=== PATIENT | female | born 1955 | race Caucasian/White ===

== ENCOUNTER 2017-07-03 18:14 | Inpatient (IN) | payer BC, OTHER ==
[2017-07-03] VITALS (7 sets, daily range): BP systolic 119–177; BP diastolic 56–104; PULSE 12–104; RESP 18–20; TEMP 98.6–98.7; O2SAT 94–97
[~2017-07-03] VITALS: Ht 160 cm; Wt 123.3 kg
[~2017-07-03 18:14] MED LIST: DARV PO; SULF-154 PO; Z.0.NO CURRENT MEDS
[2017-07-03] MEDS ORDERED: ALPR.25 PO (18:36)
[2017-07-03] MEDS ORDERED: ASPIRIN 81 MG CHEW TAB CHEW ONE (18:45)
--- NOTE | 2017-07-03 18:54 | PD ---
HPI Chief Complaint: Respiratory Symptoms Time Seen by Provider: 18:35 Travel History International Travel<30 days: No Contact w/Intl Traveler<30days: No Traveled to known affect area: No History of Present Illness HPI The patient is a 62-year-old female who presents to the emergency department for chest pain and shortness of breath. The patient states that she developed chest pain yesterday which was substernal, described as chest tightness, nonradiating, and associated with shortness of breath. The shortness of breath was exertional, alleviated at rest. The chest pressure dissipated on its own, however, the shortness of breath with exertion continued throughout today. The patient was seen at an urgent care yesterday where she had an EKG and a chest x-ray performed and was diagnosed with anxiety. The patient was sent home with a prescription for benzodiazepines. However, the patient's exertional shortness of breath continued today, once again states it' s worse with exertion of walking and alleviated at rest. The patient denies any known history of CAD, hypertension, hyperlipidemia, diabetes, or tobacco use. She denies any family history of early heart disease. The patient's symptoms are moderate, worse with exertion, and alleviated at rest. She also complains of cramping to the left lower extremity and pain located over the right popliteal fossa. She denies any history of pulmonary embolism or DVT. She denies any history of surgeries, travel, or hospitalizations in the last 3 months. PFSH Past Medical History Medical History: Denies Significant Hx ?: Not Past Surgical History Narrative Surgical section, cholecystectomy Section: Yes Social History Alcohol Use: Yes (VERY RARELY) Tobacco Use: No Substance Use: No Allergies-Medications (Allergen,Severity, Reaction): Coded Allergies: No Known Allergies (Verified , 07/03/17) Reported Meds & Prescriptions Reported Meds & Active Scripts Active Reported Xanax (Alprazolam) 0.25 Mg Tab 0.25 Mg PO BID PRN Review of Systems Except as stated in HPI: all other systems reviewed are Neg General / Constitutional: No: Fever Cardiovascular: Positive: Chest Pain or Discomfort, Dyspnea on exertion, No: Diaphoresis Respiratory: Positive: Shortness of Breath, No: Cough, Wheezing Gastrointestinal: No: Nausea, Vomiting, Abdominal Pain Musculoskeletal: Positive: Cramping, Pain, No: Limited ROM, Edema Physical Exam Narrative GENERAL: Awake, alert, pleasant [id number] female who appears her stated age and is in no acute respiratory distress. SKIN: Focused skin assessment warm/dry. HEAD: Atraumatic. Normocephalic. EYES: Pupils equal and round. No scleral icterus. No injection or drainage. ENT: No nasal bleeding or discharge. Mucous membranes pink and moist. NECK: Trachea midline. No JVD. CARDIOVASCULAR: Regular rate and rhythm. No murmur appreciated. Heart rate in the 90s. RESPIRATORY: No accessory muscle use. Clear to auscultation. Breath sounds equal bilaterally. GASTROINTESTINAL: Abdomen soft, obese, no rebound tenderness. MUSCULOSKELETAL: No obvious deformities. No clubbing. No cyanosis. No edema. Superficial varicosities noted bilaterally. NEUROLOGICAL: Awake and alert. No obvious cranial nerve deficits. Motor grossly within normal limits. Normal speech. PSYCHIATRIC: Appropriate mood and affect; insight and judgment normal. Data Data Last Documented VS Vital Signs Date Time Temp Pulse Resp B/P (MAP) Pulse Ox O2 Delivery O2 Flow Rate FiO2 07/03/17 20:26 87 20 136/70 (92) 97 07/03/17 19:11 Nasal Cannula 07/03/17 18:25 98.7 Orders Orders Complete Blood Count With Diff (07/03/17 18:42) Comprehensive Metabolic Panel (07/03/17 18:42) B-Type Natriuretic Peptide (07/03/17 18:42) Act Partial Throm Time (Ptt) (07/03/17 18:42) Prothrombin Time / Inr (Pt) (07/03/17 18:42) Magnesium (Mg) (07/03/17 18:42) Ckmb (Isoenzyme) Profile (07/03/17 18:42) Troponin I (07/03/17 18:42) Iv Access Insert/Monitor (07/03/17 18:42) Electrocardiogram (07/03/17 18:42) Ecg Monitoring (07/03/17 18:42) Oximetry (07/03/17 18:42) Oxygen Administration (07/03/17 18:42) Chest, Single Ap (07/03/17 18:42) Ct Pulmonary Angiogram (07/03/17 18:42) Sodium Chloride 0.9% Flush (Ns Flush) (07/03/17 18:45) Aspirin Chew (Aspirin Chew) (07/03/17 18:45) Us Leg Venous Doppler (07/03/17 ) Heparin Infusion MYCHAL.Q1H (07/03/17 20:27) Heparin Inj (Heparin Inj) (07/04/17 02:30) Heparin Inj (Heparin Inj) (07/04/17 02:30) Heparin-D5w 25,000 U/250 Ml (Heparin-D5w (07/03/17 20:30) Cbc No Diff, Includes Plts (07/06/17 06:00) Act Partial Throm Time (Ptt) (07/04/17 03:27) Occult Blood (Hemoccult) Stool (07/03/17 20:27) Iohexol 350 Inj (Omnipaque 350 Inj) (07/03/17 20:45) Admit Order (Ed Use Only) (07/03/17 20:48) Labs Laboratory Tests Test 07/03/17 18:55 White Blood Count 7.4 TH/MM3 Red Blood Count 4.63 MIL/MM3 Hemoglobin 12.3 GM/DL Hematocrit 38.8 % Mean Corpuscular Volume 83.8 FL Mean Corpuscular Hemoglobin 26.5 PG Mean Corpuscular Hemoglobin Concent 31.6 % Red Cell Distribution Width 15.7 % Platelet Count 116 TH/MM3 Mean Platelet Volume 10.9 FL Neutrophils (%) (Auto) 66.6 % Lymphocytes (%) (Auto) 18.6 % Monocytes (%) (Auto) 7.8 % Eosinophils (%) (Auto) 3.4 % Basophils (%) (Auto) 3.6 % Neutrophils # (Auto) 4.8 TH/MM3 Lymphocytes # (Auto) 1.4 TH/MM3 Monocytes # (Auto) 0.6 TH/MM3 Eosinophils # (Auto) 0.3 TH/MM3 Basophils # (Auto) 0.3 TH/MM3 CBC Comment DIFF FINAL Differential Comment Prothrombin Time 11.3 SEC Prothromb Time International Ratio 1.0 RATIO Activated Partial Thromboplast Time 26.5 SEC Blood Urea Nitrogen 11 MG/DL Creatinine 0.84 MG/DL Random Glucose 113 MG/DL Total Protein 7.4 GM/DL Albumin 3.4 GM/DL Calcium Level 9.1 MG/DL Magnesium Level 2.3 MG/DL Alkaline Phosphatase 89 U/L Aspartate Amino Transf (AST/SGOT) 17 U/L Alanine Aminotransferase (ALT/SGPT) 28 U/L Total Bilirubin 0.7 MG/DL Sodium Level 139 MEQ/L Potassium Level 3.8 MEQ/L Chloride Level 106 MEQ/L Carbon Dioxide Level 24.3 MEQ/L Anion Gap 9 MEQ/L Estimat Glomerular Filtration Rate 69 ML/MIN Total Creatine Kinase 72 U/L Troponin I 0.23 NG/ML B-Type Natriuretic Peptide 155 PG/ML MDM Medical Decision Making Medical Screen Exam Complete: Yes Emergency Medical Condition: Yes Medical Record Reviewed: Yes Interpretation(s) EKG reveals normal sinus rhythm with a rate in 90. Q wave noted in lead 3 with inverted T-wave. Low QRS voltage precordial leads. Last Impressions Chest X-Ray 07/03/[id number] Signed Impressions: Service Date/Time: Monday, July 03, 2017 18:57 - CONCLUSION: No acute cardiopulmonary disease. Henry Hong MD CT Angiography [id number]/03/[id number] Signed Impressions: Service Date/Time: Monday, July 03, 2017 20:31 - CONCLUSION: Extensive PE. Henry Hong MD Lower Extremity Ultrasound 07/03/17 0000 Signed Impressions: Service Date/Time: Monday, July 03, 2017 20:02 - CONCLUSION: Extensive DVT. Henry Hong MD Laboratory Tests Test 07/03/17 18:55 White Blood Count 7.4 TH/MM3 Red Blood Count 4.63 MIL/MM3 Hemoglobin 12.3 GM/DL Hematocrit 38.8 % Mean Corpuscular Volume 83.8 FL Mean Corpuscular Hemoglobin 26.5 PG Mean Corpuscular Hemoglobin Concent 31.6 % Red Cell Distribution Width 15.7 % Platelet Count 116 TH/MM3 Mean Platelet Volume 10.9 FL Neutrophils (%) (Auto) 66.6 % Lymphocytes (%) (Auto) 18.6 % Monocytes (%) (Auto) 7.8 % Eosinophils (%) (Auto) 3.4 % Basophils (%) (Auto) 3.6 % Neutrophils # (Auto) 4.8 TH/MM3 Lymphocytes # (Auto) 1.4 TH/MM3 Monocytes # (Auto) 0.6 TH/MM3 Eosinophils # (Auto) 0.3 TH/MM3 Basophils # (Auto) 0.3 TH/MM3 CBC Comment DIFF FINAL Differential Comment Prothrombin Time 11.3 SEC Prothromb Time International Ratio 1.0 RATIO Activated Partial Thromboplast Time 26.5 SEC Blood Urea Nitrogen 11 MG/DL Creatinine 0.84 MG/DL Random Glucose 113 MG/DL Total Protein 7.4 GM/DL Albumin 3.4 GM/DL Calcium Level 9.1 MG/DL Magnesium Level 2.3 MG/DL Alkaline Phosphatase 89 U/L Aspartate Amino Transf (AST/SGOT) 17 U/L Alanine Aminotransferase (ALT/SGPT) 28 U/L Total Bilirubin 0.7 MG/DL Sodium Level 139 MEQ/L Potassium Level 3.8 MEQ/L Chloride Level 106 MEQ/L Carbon Dioxide Level 24.3 MEQ/L Anion Gap 9 MEQ/L Estimat Glomerular Filtration Rate 69 ML/MIN Total Creatine Kinase 72 U/L Troponin I 0.23 NG/ML B-Type Natriuretic Peptide 155 PG/ML Differential Diagnosis Differential diagnosis includes cardiomyopathy, pericardial effusion, acute coronary syndrome, pulmonary embolism, pleural effusion, DVT, pulmonary edema, congestive heart failure, deconditioning. Narrative Course IV was established, labs are drawn and sent, and the patient was placed on cardiac telemetry monitoring and continuous pulse oximetry monitoring. EKG was ordered and interpreted. Chest x-ray was obtained. CT pulmonary angiogram was ordered an ultrasound of the right lower extremity was ordered. The patient was administered aspirin 162 mg orally. The patient's ultrasound was positive for DVT, CT pulmonary angiogram was positive for pulmonary embolism. The patient was placed on a heparin drip. The patient's chest x-ray was unremarkable. The patient's troponin was positive at 0.23, most likely secondary strain from pulmonary embolism. The patient has [facility], therefore, the on-call [facility] physician was paged. I discussed the patient with Dr. Yi who agrees with admission. Critical Care Narrative Aggregate critical care time was 35 minutes. Time to perform other separately billable procedures was not included in the critical care time. My time did not include minutes spent treating any other patients simultaneously or on activities that did not directly contribute to the patient's treatment. The services I provided to this patient were to treat and/or prevent clinically significant deterioration that could result in: Anoxia, hypoxia, arrhythmia, cardiomyopathy, . I provided critical care services requiring my management, as noted below: Chart data review, documentation time, medication orders and management, vital sign assessments/reviewing monitor data, ordering and reviewing lab tests, ordering and interpreting/reviewing x-rays and diagnostic studies, care of the patient and discussion of the patient with the admitting physicians. Physician Communication Physician Communication I discussed the patient with Dr. Yi who agrees with admission. Diagnosis Primary Impression: Pulmonary embolism Qualified Codes: I26.99 - Other pulmonary embolism without acute cor pulmonale Additional Impressions: DVT (deep venous thrombosis) Qualified Codes: I82.401 - Acute embolism and thrombosis of unspecified deep veins of right lower extremity Dyspnea on exertion Admitting Information Admitting Physician Requests: Admit Condition: Stable Shiv Dhaliwal MD Jul 03, 2017 18:54
[2017-07-03] MEDS: SODIUM CHLORIDE 0.9% FLUSH 10 ML FLUSH IVF PRN (18:55)
[2017-07-03 19:00] LABS: AUTOMATED NEUTROPHIL # 4.8 TH/MM3 (1.8-7.7); BASOPHIL # 0.3 TH/MM3 (0-0.2); BASOPHIL % 3.6 % (0.0-2.0); EOSINOPHIL # 0.3 TH/MM3 (0-0.4); EOSINOPHIL % 3.4 % (0.0-4.0); HEMATOCRIT 38.8 % (35.0-46.0); HEMO FLAGS DIFF FINAL; LYMPH % 18.6 % (9.0-44.0); LYMPHOCYTE # 1.4 TH/MM3 (1.0-4.8); MEAN CELL VOLUME 83.8 FL (80.0-100.0); MEAN CORPUSCULAR HEMOGLOBIN 26.5 PG (27.0-34.0); MEAN CORPUSCULAR HGB CONC 31.6 % (32.0-36.0); MONO % 7.8 % (0.0-8.0); NEUT % 66.6 % (16.0-70.0); PLATELET COUNT 116 TH/MM3 (150-450); RED BLOOD COUNT 4.63 MIL/MM3 (4.00-5.30); RED CELL DISTRIBUTION WIDTH 15.7 % (11.6-17.2); WHITE BLOOD COUNT 7.4 TH/MM3 (4.0-11.0)
[2017-07-03 19:10] LABS: CHLORIDE 106 MEQ/L (98-107); POTASSIUM 3.8 MEQ/L (3.5-5.1); SODIUM (NA) 139 MEQ/L (136-145)
[2017-07-03 19:14] LABS: ANION GAP 9 MEQ/L (5-15); BICARBONATE 24.3 MEQ/L (21.0-32.0); BLOOD UREA NITROGEN 11 MG/DL (7-18); MAGNESIUM 2.3 MG/DL (1.5-2.5)
[2017-07-03 19:15] LABS: APTT (PATIENT) 26.5 SEC (24.3-30.1); PROTHROMBIN TIME - PATIENT 11.3 SEC (9.8-11.6)
[2017-07-03 19:17] LABS: ALT (GPT) 28 U/L (10-53); AST (GOT) 17 U/L (15-37); GLOMERULAR FILTRATION RATE 69 ML/MIN (>89)
[2017-07-03 19:18] LABS: TOTAL BILIRUBIN ADULT 0.7 MG/DL (0.2-1.0)
[2017-07-03 19:20] LABS: ALKALINE PHOSPHATASE 89 U/L (45-117)
--- NOTE | 2017-07-03 19:24 | RADRPT ---
EXAM DATE/TIME: 07/03/2017 18:57 [facility] COMPARISON: No previous studies available for comparison. INDICATIONS : Short of breath for several days. MEDICAL HISTORY : None. SURGICAL HISTORY : None. ENCOUNTER: Initial ACUITY: 3 days PAIN SCORE: 0/10 LOCATION: Bilateral chest FINDINGS: The lungs are clear without infiltrate, nodule, or mass. There is no appreciable pleural effusion fo r technique. Heart and mediastinum are unremarkable. CONCLUSION: No acute cardiopulmonary disease. Henry Hong MD on July 03, 2017 at 19:23 Board Certified Radiologist. This report was verified electronically.
[2017-07-03 19:27] LABS: CREATINE KINASE 72 U/L (26-192)
[2017-07-03] MEDS ORDERED: IOHEXOL 350 MG/ML 10 ML VIAL (for RAD DIAG) IVCONTRAST ONE (20:45)
--- NOTE | 2017-07-03 20:55 | RADRPT ---
EXAM DATE/TIME: 07/03/2017 20:31 [facility] COMPARISON: No previous studies available for comparison. INDICATIONS : Short of breath. IV CONTRAST: 75 cc Omnipaque 350 (iohexol) IV RADIATION DOSE: 21.80 CTDIvol (mGy) MEDICAL HISTORY : None SURGICAL HISTORY : section. ENCOUNTER: Initial ACUITY: 1 day PAIN SCALE: 0/10 LOCATION: chest TECHNIQUE: Volumetric scanning of the chest was performed using a pulmonary embolism protocol MIP images were re constructed. Using automated exposure control and adjustment of the mA and/or kV according to patien t size, radiation dose was kept as low as reasonably achievable to obtain optimal diagnostic quality images. DICOM format image data is available electronically for review and comparison. Follow-up recommendations for detected pulmonary nodules are based at a minimum on nodule size and pa tient risk factors according to Fleischner Society Guidelines. FINDINGS: There is extensivepulmonary embolus right pulmonary artery extending into middle lobe and right lower lobe with questionable slight involvement of the right upper lobe and left lower lobe. Lungs ar e clear. CONCLUSION: Extensive PE. Henry Hong MD on July 03, 2017 at 20:51 Board Certified Radiologist. This report was verified electronically.
--- NOTE | 2017-07-03 20:56 | RADRPT ---
EXAM DATE/TIME: 07/03/2017 20:02 [facility] COMPARISON: No previous studies available for comparison. INDICATIONS : Right leg pain. MEDICAL HISTORY : Right leg pain. Shortness of breath. SURGICAL HISTORY : section. Cholecystectomy. ENCOUNTER: Initial ACUITY: 2 day PAIN SCORE: 3/10 LOCATION: Right leg. TECHNIQUE: Venous ultrasound of the leg was performed from the inguinal ligament to the proximal calf. Real-anthony e, color Doppler and spectral tracing, compression and augmentation techniques were used. FINDINGS: There is extensive deep venous thrombosis which extends from superficial femoral vein all the way renee n to the tibial vein and below the knee vessels . CONCLUSION: Extensive DVT. Henry Hong MD on July 03, 2017 at 20:53 Board Certified Radiologist. This report was verified electronically.
[2017-07-03] MEDS: HEPARIN-D5W 25,000 U/250 ML 250 ML IV SCH (21:00)
[2017-07-03] MEDS ORDERED: TEMAZEPAM 15 MG CAP PO PRN (22:00)
[2017-07-03] MEDS ORDERED: ACETAMINOPHEN 325 MG TAB PO PRN (22:00)
[2017-07-03] MEDS ORDERED: ONDANSETRON HCL 4 MG/2 ML VIAL IVP PRN (22:00)
[2017-07-03] MEDS ORDERED: NALOXONE HCL 0.4 MG/ML AMP IV PUSH PRN (22:00)
[2017-07-03] MEDS ORDERED: HEPARIN SODIUM - IV 10,000 UNITS/10 ML VIAL IV ONE (22:15)
[2017-07-04] VITALS (10 sets, daily range): BP systolic 109–140; BP diastolic 62–78; PULSE 72–104; RESP 12–28; TEMP 98.4–99; O2SAT 93–98
[2017-07-04] MEDS ORDERED: HEPARIN SODIUM - IV 10,000 UNITS/10 ML VIAL IV PRN (02:30)
[2017-07-04] MEDS ORDERED: PERMETHRIN 1% LOTION 60 ML BTL TOPICAL SCH (02:30)
[2017-07-04] MEDS ORDERED: HEPARIN - 10,000 UNITS/ML IV ADDITIVE IV PRN (02:30)
[2017-07-04 03:47] LABS: APTT (PATIENT) 80.1 SEC (24.3-30.1)
[2017-07-04] MEDS: ACETAMINOPHEN/HYDROcodone 325 MG/5 MG TAB PO PRN ×2 (04:31→21:18)
[2017-07-04] MEDS ORDERED: PNEUMOCOCCAL POLYVALENT INJ 25 MCG/0.5 ML SYR IM ONE (09:00)
[2017-07-04] MEDS ORDERED: INFLUENZA VIRUS VACCINE (QUADRIVALENT) 0.5 ML SYR IM ONE (09:00)
[2017-07-04 09:13] LABS: CHLORIDE 107 MEQ/L (98-107); POTASSIUM 3.9 MEQ/L (3.5-5.1); SODIUM (NA) 142 MEQ/L (136-145)
[2017-07-04 09:14] LABS: BASOPHIL % 0.7 % (0.0-2.0); EOSINOPHIL # 0.4 TH/MM3 (0-0.4); EOSINOPHIL % 5.8 % (0.0-4.0); HEMATOCRIT 34.4 % (35.0-46.0); LYMPH % 21.8 % (9.0-44.0); LYMPHOCYTE # 1.3 TH/MM3 (1.0-4.8); MEAN CELL VOLUME 83.8 FL (80.0-100.0); MEAN CORPUSCULAR HEMOGLOBIN 27.8 PG (27.0-34.0); MEAN CORPUSCULAR HGB CONC 33.1 % (32.0-36.0); MONO % 7.5 % (0.0-8.0); NEUT % 64.2 % (16.0-70.0); PLATELET COUNT 93 TH/MM3 (150-450); RED CELL DISTRIBUTION WIDTH 15.4 % (11.6-17.2); WHITE BLOOD COUNT 6.2 TH/MM3 (4.0-11.0)
[2017-07-04 09:18] LABS: ANION GAP 8 MEQ/L (5-15); BICARBONATE 27.2 MEQ/L (21.0-32.0); BLOOD UREA NITROGEN 10 MG/DL (7-18)
[2017-07-04 09:19] LABS: APTT (PATIENT) 61.6 SEC (24.3-30.1); HEMO FLAGS AUTO DIFF
[2017-07-04 09:21] LABS: ALT (GPT) 28 U/L (10-53); AST (GOT) 19 U/L (15-37); GLOMERULAR FILTRATION RATE 79 ML/MIN (>89)
[2017-07-04 09:22] LABS: TOTAL BILIRUBIN ADULT 0.8 MG/DL (0.2-1.0)
[2017-07-04 09:24] LABS: ALKALINE PHOSPHATASE 85 U/L (45-117)
[2017-07-04 09:31] LABS: CREATINE KINASE 46 U/L (26-192)
[2017-07-04 09:41] LABS: PLATELET ESTIMATE SMEAR LOW (NORMAL); PLATELET MORPHOLOGY NORMAL (NORMAL)
[2017-07-04 09:42] LABS: SCAN/DIFF AUTO DIFF CONFIRMED
[2017-07-04] MEDS: HEPARIN-D5W 25,000 U/250 ML 250 ML IV SCH (10:50)
--- NOTE | 2017-07-04 14:04 | EKG ---
Date Performed: 07/03/2017 Time Performed: 18:46:14 PTAGE: 62 years EKG: Sinus rhythm LOW QRS VOLTAGE IN PRECORDIAL LEADS BORDERLINE ECG NO PREVIOUS TRACING DOCTOR: Amos Mishra Interpretating Date/Time 07/04/2017 13:57:12
[2017-07-04 14:58] LABS: APTT (PATIENT) 53.9 SEC (24.3-30.1)
[2017-07-04] MEDS: WARFARIN SOD 7.5 MG TAB PO SCH (18:21)
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
[2017-07-05] VITALS (16 sets, daily range): BP systolic 93–135; BP diastolic 47–71; PULSE 62–91; RESP 11–49; TEMP 97.7–98.9; O2SAT 93–98
[2017-07-05] MEDS: ACETAMINOPHEN/HYDROcodone 325 MG/5 MG TAB PO PRN ×2 (05:21→20:18)
[2017-07-05 05:50] LABS: AUTOMATED NEUTROPHIL # 3.7 TH/MM3 (1.8-7.7); BASOPHIL % 0.5 % (0.0-2.0); EOSINOPHIL # 0.3 TH/MM3 (0-0.4); EOSINOPHIL % 5.3 % (0.0-4.0); HEMATOCRIT 33.2 % (35.0-46.0); HEMO FLAGS DIFF FINAL; LYMPH % 21.3 % (9.0-44.0); LYMPHOCYTE # 1.2 TH/MM3 (1.0-4.8); MEAN CELL VOLUME 83.3 FL (80.0-100.0); MEAN CORPUSCULAR HEMOGLOBIN 26.5 PG (27.0-34.0); MEAN CORPUSCULAR HGB CONC 31.8 % (32.0-36.0); MONO % 8.9 % (0.0-8.0); PLATELET COUNT 108 TH/MM3 (150-450); RED BLOOD COUNT 3.99 MIL/MM3 (4.00-5.30); RED CELL DISTRIBUTION WIDTH 15.2 % (11.6-17.2); WHITE BLOOD COUNT 5.7 TH/MM3 (4.0-11.0)
[2017-07-05 05:59] LABS: CHLORIDE 108 MEQ/L (98-107); POTASSIUM 3.7 MEQ/L (3.5-5.1); SODIUM (NA) 143 MEQ/L (136-145)
[2017-07-05 06:02] LABS: BLOOD, URINE LARGE (NEG); GLUCOSE,URINE NEG (NEG); KETONE, URINE NEG (NEG); NITRITE,URINE POS (NEG); PH, URINE 5.5 (5.0-8.5)
[2017-07-05 06:03] LABS: BLOOD UREA NITROGEN 11 MG/DL (7-18)
[2017-07-05 06:04] LABS: ANION GAP 7 MEQ/L (5-15); APTT (PATIENT) 56.4 SEC (24.3-30.1); BICARBONATE 28.2 MEQ/L (21.0-32.0)
[2017-07-05 06:06] LABS: ALT (GPT) 25 U/L (10-53); AST (GOT) 16 U/L (15-37); GLOMERULAR FILTRATION RATE 66 ML/MIN (>89)
[2017-07-05 06:08] LABS: TOTAL BILIRUBIN ADULT 0.9 MG/DL (0.2-1.0)
[2017-07-05 06:09] LABS: ALKALINE PHOSPHATASE 90 U/L (45-117)
[2017-07-05 06:19] LABS: METHOD OF COLLECTION VOIDED; URINE COLOR YELLOW (YELLW/STRAW)
[2017-07-05 06:22] LABS: BACTERIA, URINE MANY /hpf; COMMENT (UR) CULTURE INDICATED; CULTURE IF INDICATED CULTURE INDICATED
--- NOTE | 2017-07-05 09:28 | RADRPT ---
EXAM DATE/TIME: 07/05/2017 08:36 [facility] COMPARISON: No previous studies available for comparison. INDICATIONS : Bleeding. MEDICAL HISTORY : DVT. PE SURGICAL HISTORY : section. Cholecystectomy. ENCOUNTER: Initial ACUITY: > 1 year PAIN SCORE: 0/10 LOCATION: Bilateral pelvis MEASUREMENTS: UTERUS: 10.7 x 8.5 x 7.1 cm ENDOMETRIAL STRIPE: >20 mm RIGHT OVARY: Non visualized LEFT OVARY: Non visualized FINDINGS: UTERUS: The myometrium is homogeneous. There does appear to be some thickening of the endometrial lining at 3 .3 cm. No definite fluid is seen in the endometrial cavity. There appears to be a hypoechoic mass in the posterior fundus measuring 2.8 cm suggestive of fibroid. A few tiny nabothian cysts are seen in t he cervix. RIGHT OVARY: Not visualized. No adnexal masses LEFT OVARY: Not visualized. No adnexal masses. MISCELLANEOUS: No free fluid. CONCLUSION: 1. There is some thickening involving the endometrial lining at 3.3 cm. This is abnormal for this pat ient's age group. In a patient with postmenopausal bleeding, further evaluation is recommended. 2. There appears to be a hypoechoic mass in the posterior fundus measuring 2.8 cm suggestive of a fib roid. 3. The ovaries were not visualized. Irwin Connelly MD on July 05, 2017 at 9:23 Board Certified Radiologist. This report was verified electronically.
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
--- NOTE | 2017-07-05 12:45 | ECHRPT ---
Indication: Pericardial effusion (noninflammatory) CONCLUSIONS Normal left ventricular size and wall thickness. The left ventricular systolic function is normal wi th an estimated ejection fraction in the range of 60-65%. Left ventricular diastolic function parameters a re normal. There is a small pericardial effusion present. BP: 95 / 71 HR: 72 Rhythm: Sinus Technical Quality:Good FINDINGS LEFT VENTRICLE Normal left ventricular size and wall thickness. The left ventricular systolic function is normal wi th an estimated ejection fraction in the range of 60-65%. Left ventricular diastolic function parameters a re normal. RIGHT VENTRICLE Normal right ventricular size and systolic function. LEFT ATRIUM The left atrial size is normal. RIGHT ATRIUM The right atrial size is normal. ATRIAL SEPTUM Normal atrial septal thickness without atrial level shunting by limited color doppler interrogation. AORTA The aortic root and proximal ascending aorta are normal in size on limited imaging. MITRAL VALVE Structurally normal mitral valve. No mitral valve stenosis or regurgitation. AORTIC VALVE Trileaflet aortic valve. No aortic valve stenosis or regurgitation. TRICUSPID VALVE Structurally normal tricuspid valve. No tricuspid valve stenosis or regurgitation. PULMONARY VALVE The pulmonary valve is not well visualized. VESSELS The inferior vena cava is normal in size. PERICARDIUM There is a small pericardial effusion present. Amos Mishra MD, FACC (Electronically Signed) Final Date:05 July 2017 12:44
[2017-07-05] MEDS: WARFARIN SOD 7.5 MG TAB PO SCH (16:00)
--- NOTE | 2017-07-05 19:10 | HHI.PR ---
Subjective Remarks states able to walk a little better with out as much discomfort, not as sob had not mentioned vaginal spotting yesterday at initial interview, states has had it for several yrs, 5-6, attributes it to stress as feels that is when it comes on, last menses 3 yrs ago. states spotting has not been increased with anticoagulation neither in intensity nor quantity. Researched cost of oral agents after discussion with Dr Valencia. States she cannot afford the cost of any of them. Would rather take coumadin and have regular blood work. Objective Vitals Vital Signs Date Time Temp Pulse Resp B/P (MAP) Pulse Ox O2 Delivery O2 Flow Rate FiO2 07/05/17 16:01 98.0 72 20 127/65 (85) 96 07/05/17 16:00 74 17 97 07/05/17 15:00 76 07/05/17 12:01 64 12 99/54 (69) 95 07/05/17 12:00 66 11 95 07/05/17 11:00 68 11 94 07/05/17 10:00 88 38 07/05/17 09:00 80 49 07/05/17 08:01 64 11 95/47 (63) 96 07/05/17 08:00 93 Nasal Cannula 2.00 07/05/17 08:00 62 12 96 07/05/17 07:53 72 07/05/17 06:20 18 07/05/17 04:58 97.7 66 20 95/71 (79) 98 07/05/17 00:00 98.8 72 14 93/48 (63) 94 07/04/17 23:07 84 07/04/17 20:00 98.9 76 20 109/72 (84) 96 07/04/17 19:30 93 Nasal Cannula 2.00 07/05/17 07/05/17 07/06/17 15:00 23:00 07:00 Intake Total 600 ml Output Total 500 ml Balance 100 ml Intake Oral 600 ml Output Urine Total 500 ml # Bowel Movements 0 Result Diagram: 07/05/17 0445 07/05/17 0445 Imaging Last Impressions Pelvis Ultrasound 07/05/17 0000 Signed Impressions: Service Date/Time: June 08:36 - CONCLUSION: 1. There is some thickening involving the endometrial lining at 3.3 cm. This is abnormal for this patient's age group. In a patient with postmenopausal bleeding, further evaluation is recommended. 2. There appears to be a hypoechoic mass in the posterior fundus measuring 2.8 cm suggestive of a fibroid. 3. The ovaries were not visualized. Irwin Connelly MD Chest X-Ray 07/03/171841 Signed Impressions: Service Date/Time: Monday, July 03, 2017 18:57 - CONCLUSION: No acute cardiopulmonary disease. Henry Hong MD CT Angiography 07/03/171841 Signed Impressions: Service Date/Time: Monday, July 03, 2017 20:31 - CONCLUSION: Extensive PE. Henry Hong MD Lower Extremity Ultrasound 07/03/17 0000 Signed Impressions: Service Date/Time: Monday, July 03, 2017 20:02 - CONCLUSION: Extensive DVT. Henry Hong MD Objective Remarks Lying in bed wearing O2 nasal cannula NAD CTA no wheezing rrr not tachycardic Globose +BS NO c/c/e Tender below left knee, varicosities both lower extremities A/P Problem List: (1) Pulmonary embolism ICD Codes: I26.99 - Other pulmonary embolism without acute cor pulmonale Status: Acute Plan: continue on anticoagulation she is unable to afford the cost of the newer oral agents and has been very anxious about being on lovenox while we bridge her she has agreed to try to the lovenox tonight to see if she is able to do it meanwhile will continue with coumadin (2) DVT (deep venous thrombosis) ICD Codes: I82.409 - Acute embolism and thrombosis of unspecified deep veins of unspecified lower extremity Status: Acute Plan: continue anticoagulation as above (3) Vaginal bleeding, abnormal ICD Codes: N93.9 - Abnormal uterine and vaginal bleeding, unspecified Status: Chronic Plan: she has had vaginal bleeding /spotting ongoing for several years according to her her vaginal ultrasound was abnormal, she needs to be seen by port patrol officer so far she has not bled more while anticoagulated and needs to continue anticoagulation if possible Problem Qualifiers (1) Pulmonary embolism: Qualified Codes: I26.99 - Other pulmonary embolism without acute cor pulmonale (2) DVT (deep venous thrombosis): Qualified Codes: I82.401 - Acute embolism and thrombosis of unspecified deep veins of right lower extremity Alicia Wilcox MD Jul 05, 2017 19:10
[2017-07-05] MEDS: ENOXAPARIN SODIUM 120 MG/0.8 ML SYRINGE SQ SCH (21:15)
[2017-07-05] MEDS: SODIUM CHLORIDE 0.9% FLUSH 10 ML FLUSH IVF PRN (21:16)
[2017-07-05] MEDS ORDERED: DO NOT ADM ANY ANTICOAGULANT DRUGS OTHER PRN (21:45)
[2017-07-06] VITALS (17 sets, daily range): BP systolic 119–141; BP diastolic 53–77; PULSE 58–112; RESP 13–35; TEMP 97.7–100.8; O2SAT 4–99
[2017-07-06] MEDS: ACETAMINOPHEN/HYDROcodone 325 MG/5 MG TAB PO PRN ×2 (04:15→16:53)
[2017-07-06 04:17] LABS: AUTOMATED NEUTROPHIL # 2.9 TH/MM3 (1.8-7.7); BASOPHIL # 0.1 TH/MM3 (0-0.2); BASOPHIL % 1.1 % (0.0-2.0); EOSINOPHIL # 0.3 TH/MM3 (0-0.4); EOSINOPHIL % 6.6 % (0.0-4.0); HEMATOCRIT 35.6 % (35.0-46.0); HEMO FLAGS DIFF FINAL; LYMPH % 22.5 % (9.0-44.0); MEAN CELL VOLUME 84.8 FL (80.0-100.0); MEAN CORPUSCULAR HGB CONC 31.9 % (32.0-36.0); MONO % 7.4 % (0.0-8.0); NEUT % 62.4 % (16.0-70.0); PLATELET COUNT 113 TH/MM3 (150-450); RED BLOOD COUNT 4.21 MIL/MM3 (4.00-5.30); RED CELL DISTRIBUTION WIDTH 15.5 % (11.6-17.2); WHITE BLOOD COUNT 4.6 TH/MM3 (4.0-11.0)
[2017-07-06 04:24] LABS: CHLORIDE 106 MEQ/L (98-107); POTASSIUM 4.1 MEQ/L (3.5-5.1); SODIUM (NA) 141 MEQ/L (136-145)
[2017-07-06 04:28] LABS: ANION GAP 6 MEQ/L (5-15); BLOOD UREA NITROGEN 11 MG/DL (7-18)
[2017-07-06 04:31] LABS: ALT (GPT) 25 U/L (10-53); AST (GOT) 13 U/L (15-37); GLOMERULAR FILTRATION RATE 70 ML/MIN (>89)
[2017-07-06 04:33] LABS: TOTAL BILIRUBIN ADULT 0.6 MG/DL (0.2-1.0)
[2017-07-06 04:34] LABS: ALKALINE PHOSPHATASE 99 U/L (45-117)
[2017-07-06 04:50] LABS: INTERNATIONAL NORMALIZED RATIO 1.2 RATIO; PROTHROMBIN TIME - PATIENT 13.4 SEC (9.8-11.6)
[2017-07-06] MEDS: ENOXAPARIN SODIUM 120 MG/0.8 ML SYRINGE SQ SCH ×2 (09:27→20:05)
--- NOTE | 2017-07-06 14:07 | PD.CONS ---
HPI Chief Complaint PMB x 3 years now on anticoagulation for PE and DVT sono with endometrial stripe of 3 cm pap smear nl by report no significant bleeding now or increase since Coumadin started Date Seen: Jul 06, 2017 Time Seen: 13:58 Travel History International Travel<30 Days: No Contact w/Intl Traveler<30Days: No Known Affected Area: No History Obstetric History Obstetric History C/S X 1 BEEN HAVING PMB SPOTTING FOR SEVERAL YEARS Family History Family History: Negative Social History Alcohol Use: Yes Tobacco Use: Yes Substance Abuse: Yes Allergies-Medications (Allergen,Severity, Reaction): Coded Allergies: No Known Allergies (Verified , 07/03/17) Home Meds Reported Medications Alprazolam (Xanax) 0.25 Mg Tab, 0.25 MG PO BID Y for ANXIETY, TAB 0 Refills 07/03/17 Review of Systems Genitourinary: Vaginal Bleeding, No: Urgency, Pelvic Pain Physical Exam Vital Signs Date Time Temp Pulse Resp B/P (MAP) Pulse Ox O2 Delivery O2 Flow Rate FiO2 07/06/17 13:34 98.3 68 14 139/53 (81) 97 07/06/17 10:00 66 07/06/17 09:30 97.7 72 35 121/77 (92) 94 07/06/17 09:00 60 07/06/17 08:00 58 07/06/17 07:42 97 Nasal Cannula 2.00 07/06/17 07:00 58 07/06/17 04:00 100.8 111 13 141/64 (89) 97 07/06/17 00:00 112 16 4 07/05/17 23:00 91 07/05/17 21:18 25 07/05/17 20:00 98.9 90 22 135/65 (88) 96 07/05/17 19:52 95 Nasal Cannula 2.00 07/05/17 16:01 98.0 72 20 127/65 (85) 96 07/05/17 16:00 74 17 97 07/05/17 15:00 76 Narrative GENERAL: Well-nourished, well-developed patient. Data Data Vital Signs Reviewed: Yes Orders Orders Warfarin (Coumadin) Pt Teach (Coumadin B (07/05/17 16:16) Prothrombin Time / Inr (Pt) (07/06/17 06:00) Occult Blood (Hemoccult) Stool (07/05/17 19:15) Specimen To Be Collected PRN (07/05/17 19:15) Enoxaparin Inj (Lovenox Inj) (07/05/17 21:00) Consult Gynecology (07/05/17 ) Complete Blood Count With Diff (07/06/17 06:00) Comprehensive Metabolic Panel (07/06/17 06:00) [facility] (07/05/17 21:45) Warfarin (Coumadin) Pt Teach (Coumadin B (07/05/17 16:00) Med Onc Bar Trans-No Charge (07/06/17 ) (Hub Use Only)Inp Phy Cons/Ref (07/06/17 08:33) Labs Laboratory Tests Test 07/05/17 22:05 07/06/17 04:05 Total Creatine Kinase 34 Troponin I 0.03 White Blood Count 4.6 Red Blood Count 4.21 Hemoglobin 11.4 Hematocrit 35.6 Mean Corpuscular Volume 84.8 Mean Corpuscular Hemoglobin 27.0 Mean Corpuscular Hemoglobin Concent 31.9 Red Cell Distribution Width 15.5 Platelet Count 113 Mean Platelet Volume 10.8 Neutrophils (%) (Auto) 62.4 Lymphocytes (%) (Auto) 22.5 Monocytes (%) (Auto) 7.4 Eosinophils (%) (Auto) 6.6 Basophils (%) (Auto) 1.1 Neutrophils # (Auto) 2.9 Lymphocytes # (Auto) 1.0 Monocytes # (Auto) 0.3 Eosinophils # (Auto) 0.3 Basophils # (Auto) 0.1 CBC Comment DIFF FINAL Differential Comment Prothrombin Time 13.4 Prothromb Time International Ratio 1.2 Blood Urea Nitrogen 11 Creatinine 0.83 Random Glucose 99 Total Protein 6.3 Albumin 2.6 Calcium Level 8.6 Alkaline Phosphatase 99 Aspartate Amino Transf (AST/SGOT) 13 Alanine Aminotransferase (ALT/SGPT) 25 Total Bilirubin 0.6 Sodium Level 141 Potassium Level 4.1 Chloride Level 106 Carbon Dioxide Level 29.0 Anion Gap 6 Estimat Glomerular Filtration Rate 70 Date/Time Source Procedure Growth Status 07/05/17 05:10 Urine Random Urine Urine Culture - Preliminary Gram Negative Jean Resulted MDM Medical Record Reviewed: Yes Interpretation(s) PT AT HIGH LIKELIHOOD OF UTERINE CA WITH BMI NEAR 50, SPOTTING FOR SEVERAL YEARS AND NEW ONSET OF DVT AND PE SHE WILL NEED SALES SERVICE TECHNICIAN F/U OUT PATIENT ONCE SHE HAS BEEN TREATED FOR HER LIFE THREATENING PE. SHE WOULD BE BETTER SUITED IN SEEING A SALES SERVICE TECHNICIAN RATHER THAN A UROGYN FOR THIS W/U AND ALREADY HAS A RELATIONSHIP WITH LOCAL SALES SERVICE TECHNICIAN IN [facility] AND WILL F/U WITH HIS OFFICE AFTER DC THERE IS NO INDICATION FOR EMERGENT UTERINE BX AND TO DO SO WOULD PLACE HER AT UNACCEPTABLE RISK SHE MAY WELL HAVE MORE BLEEDING THE ANTICOAGULATION BECOMES THERAPEUTIC. FEEL FREE TO CONTACT ME WITH ANY QUESTIONS. Admitting diagnosis: pulmonary embolism, DVT, dyspnea on exertion Condition: Stable Vic Martinez MD Jul 06, 2017 14:07
--- NOTE | 2017-07-06 14:51 | MB ---
cc: CARMEN TUCKER MD DATE OF CONSULTATION: 07/06/2017 REASON FOR CONSULTATION Postmenopausal bleeding. HISTORY OF PRESENT ILLNESS The patient is a 62-year-old white female, 1, para 1, status post one prior , who was admitted to the hospital with pulmonary embolus. During her work-up it was noted that she had a history of vaginal bleeding described as spotting over the last several years. She has had a Pap smear in the last year that was normal. She is on no hormone replacement and she has an ultrasound that shows an endometrial stripe of 3 cm. PAST MEDICAL HISTORY The patient's medical history is outlined in the chart. The most pressing issue here is the pulmonary embolus, presently on anticoagulation. PAST SURGICAL HISTORY 1. . 2. Cholecystectomy. ZINC CHLORIDE OPERATOR HISTORY No STDs or abnormal Pap smears. Menopause with several years ago. Postmenopausal spotting has been going on for several years. OB HISTORY One . FAMILY HISTORY Noncontributory. SOCIAL HISTORY Works full-time. Does not use any alcohol or drugs. REVIEW OF SYSTEMS Chest pain, orthopnea, shortness of breath, has improved with anticoagulation. From a ZINC CHLORIDE OPERATOR standpoint the vaginal spotting is described as minor. No genitourinary symptomatology otherwise or complaints. PHYSICAL EXAMINATION VITAL SIGNS: Afebrile. Vital signs stable. Blood pressure 140/80. O2 sat 98%. GENERAL: The is alert and oriented in no acute distress. No sign of cognitive dysfunction or depression. ASSESSMENT The patient is a relatively high risk of underlying uterine cancer in light of her BMI approaching 50, the complaint of vaginal spotting for several years and thickened endometrial stripe. However, at this point the most primary concern is her treatment for life-threatening pulmonary embolus. She can be followed up as an outpatient regarding the need for endometrial sampling once the present issue is under control. As a urogynecologist this patient would probably be better served by a speeder operator and she has a relationship already with a local OB-ZINC CHLORIDE OPERATOR and she will follow-up with him. Our local ZINC CHLORIDE OPERATOR oncologist typically will not see patients for these issues until there has been biopsy-proven malignancy. The patient may well have more bleeding as her anticoagulation becomes into the therapeutic range. This will be dealt with conservatively as she at this point is a remarkably poor surgical candidate and she understands that she may well have more bleeding and also understands the need for further evaluation. Feel free to contact me with any questions regarding care or follow-up of the patient at [phone]. Medical decision-making moderate complexity. Time with patient 30 minutes. MD LEANNA Friedman/BT /2:09 PM /2:35 PM
[2017-07-06] MEDS: SULFAMETHOXAZOLE-TRIMETHOPRIM DS 800-160 MG TAB PO SCH ×2 (15:34→20:04)
[2017-07-06] MEDS: WARFARIN SOD 7.5 MG TAB PO SCH (15:34)
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
--- NOTE | 2017-07-06 18:14 | HHI.PR ---
Subjective Remarks Still with some rt leg pain on occasion. Ambulating. Seen by Dr Martinez today and aware of importance of JAVA SUPPORT ENGINEER followup.Still anxious about lovenox injections. Objective Vitals Vital Signs Date Time Temp Pulse Resp B/P (MAP) Pulse Ox O2 Delivery O2 Flow Rate FiO2 07/06/17 16:00 98.0 76 32 119/58 (78) 99 07/06/17 15:00 72 07/06/17 14:00 74 07/06/17 13:34 98.3 68 14 139/53 (81) 97 07/06/17 13:00 74 07/06/17 12:00 76 07/06/17 11:00 74 07/06/17 10:00 66 07/06/17 09:30 97.7 72 35 121/77 (92) 94 07/06/17 09:00 60 07/06/17 08:00 58 07/06/17 07:42 97 Nasal Cannula 2.00 07/06/17 07:00 58 07/06/17 04:00 100.8 111 13 141/64 (89) 97 07/06/17 00:00 112 16 4 07/05/17 23:00 91 07/05/17 21:18 25 07/05/17 20:00 98.9 90 22 135/65 (88) 96 07/05/17 19:52 95 Nasal Cannula 2.00 Result Diagram: 07/06/17 0405 07/06/17 0405 Imaging Last Impressions Pelvis Ultrasound 07/05/17 0000 Signed Impressions: Service Date/Time: June 08:36 - CONCLUSION: 1. There is some thickening involving the endometrial lining at 3.3 cm. This is abnormal for this patient's age group. In a patient with postmenopausal bleeding, further evaluation is recommended. 2. There appears to be a hypoechoic mass in the posterior fundus measuring 2.8 cm suggestive of a fibroid. 3. The ovaries were not visualized. Irwin Connelly MD Chest X-Ray 07/03/171841 Signed Impressions: Service Date/Time: Monday, July 03, 2017 18:57 - CONCLUSION: No acute cardiopulmonary disease. Henry Hong MD CT Angiography 07/03/171841 Signed Impressions: Service Date/Time: Monday, July 03, 2017 20:31 - CONCLUSION: Extensive PE. Henry Hong MD Lower Extremity Ultrasound 07/03/17 0000 Signed Impressions: Service Date/Time: Monday, July 03, 2017 20:02 - CONCLUSION: Extensive DVT. Henry Hong MD Objective Remarks Lying in bed wearing O2 nasal cannula, sleeping comfortably,easily arousable NAD CTA no wheezing rrr not tachycardic Globose +BS NO c/c/e Tender below left knee, varicosities both lower extremities A/P Problem List: (1) DVT (deep venous thrombosis) ICD Codes: I82.409 - Acute embolism and thrombosis of unspecified deep veins of unspecified lower extremity Status: Acute Plan: continue anticoagulation as above discussed that should wait to return to work after seen by her primary next week , (she states she has an trudy on sun) she should try to wear some support stockings for the swelling she may have (2) Vaginal bleeding, abnormal ICD Codes: N93.9 - Abnormal uterine and vaginal bleeding, unspecified Status: Chronic Plan: she has had vaginal bleeding /spotting ongoing for several years according to her her vaginal ultrasound was abnormal, she was seen by JAVA SUPPORT ENGINEER and at this point this issue is not emergent and can wait until she sees the a business operations manager as an outpatient. The importance of follow up was stressed to her and she is aware of this and tells me she plans to follow up with the CHEESE SPRAYER her daughter used. Dr Zuleta. (3) Pulmonary embolism ICD Codes: I26.99 - Other pulmonary embolism without acute cor pulmonale Status: Acute Plan: continue on anticoagulation she is unable to afford the cost of the newer oral agents and has been very anxious about being on lovenox while we bridge her still very anxious about injections, was able to get samples of xarelto 15mg to take twice daily for 21 days . Case management was able to get her a month at no cost with a coupon through the [employer] so she can then start the xarelto 20 mg po daily.. She states she should be financially back on her feet and able to continue with the cost after that. (4) UTI (urinary tract infection) ICD Codes: N39.0 - Urinary tract infection, site not specified Status: Acute Plan: culture growing growing gram neg rods, will started her on bactrim DS bid Problem Qualifiers (1) DVT (deep venous thrombosis): Qualified Codes: I82.401 - Acute embolism and thrombosis of unspecified deep veins of right lower extremity (2) Pulmonary embolism: Qualified Codes: I26.99 - Other pulmonary embolism without acute cor pulmonale Alicia Wilcox MD Jul 06, 2017 18:14
[2017-07-07] VITALS: BP 126/76; PULSE 74; PULSE 80; RESP 17; TEMP 99.2; O2SAT 98
[2017-07-07] MEDS: ACETAMINOPHEN/HYDROcodone 325 MG/5 MG TAB PO PRN (00:11)
[2017-07-07 04:00] VITALS: BP 117/66; PULSE 72; RESP 21; TEMP 97.7; O2SAT 98
[2017-07-07 07:52] VITALS: O2SAT 99
[2017-07-07 08:00] VITALS: PULSE 65
[2017-07-07 08:23] LABS: INTERNATIONAL NORMALIZED RATIO 1.6 RATIO; PROTHROMBIN TIME - PATIENT 17.8 SEC (9.8-11.6)
[2017-07-07 08:28] VITALS: BP 121/60; PULSE 65; RESP 24; TEMP 97.8; O2SAT 99
[2017-07-07] MEDS: SULFAMETHOXAZOLE-TRIMETHOPRIM DS 800-160 MG TAB PO SCH (08:48)
[2017-07-07] MEDS ORDERED: RIVAROXABAN 15 MG TAB PO SCH (09:00)
[2017-07-07] MEDS ORDERED: XARE15TA PO (09:28)
[2017-07-07] MEDS ORDERED: [UNRECOGNIZED DRUG - CODE] TOPICAL (09:28)
[2017-07-07] MEDS ORDERED: HYDR-3516 PO (09:28)
[2017-07-07] MEDS ORDERED: SULF1TAB23 PO (09:28)
[2017-07-07] MEDS ORDERED: XARE20TA PO (09:37)
--- NOTE | 2017-07-07 09:56 | HHI.PR ---
Subjective Remarks less discomfort today , ambulated in [place] yesterday and passed walk test Objective Vitals Vital Signs Date Time Temp Pulse Resp B/P (MAP) Pulse Ox O2 Delivery O2 Flow Rate FiO2 07/07/17 08:28 97.8 65 24 121/60 (80) 99 07/07/17 08:00 65 07/07/17 07:52 99 Nasal Cannula 2.00 07/07/17 04:00 97.7 72 21 117/66 (83) 98 07/07/17 00:00 74 07/07/17 00:00 99.2 80 17 126/76 (93) 98 07/06/17 20:00 98.8 88 18 127/57 (80) 97 07/06/17 20:00 78 07/06/17 19:55 98 Nasal Cannula 2.00 07/06/17 16:00 98.0 76 32 119/58 (78) 99 07/06/17 15:00 72 07/06/17 14:00 74 07/06/17 13:34 98.3 68 14 139/53 (81) 97 07/06/17 13:00 74 07/06/17 12:00 76 07/06/17 11:00 74 07/06/17 10:00 66 Result Diagram: 07/06/175 07/06/175 Imaging Last Impressions Pelvis Ultrasound 07/05/17 0000 Signed Impressions: Service Date/Time: June 08:36 - CONCLUSION: 1. There is some thickening involving the endometrial lining at 3.3 cm. This is abnormal for this patient's age group. In a patient with postmenopausal bleeding, further evaluation is recommended. 2. There appears to be a hypoechoic mass in the posterior fundus measuring 2.8 cm suggestive of a fibroid. 3. The ovaries were not visualized. Irwin Connelly MD Chest X-Ray 07/03/171841 Signed Impressions: Service Date/Time: Monday, July 03, 2017 18:57 - CONCLUSION: No acute cardiopulmonary disease. Henry Hong MD CT Angiography 07/03/171841 Signed Impressions: Service Date/Time: Monday, July 03, 2017 20:31 - CONCLUSION: Extensive PE. Henry Hong MD Lower Extremity Ultrasound 07/03/17 0000 Signed Impressions: Service Date/Time: Monday, July 03, 2017 20:02 - CONCLUSION: Extensive DVT. K. Michael Hong MD Objective Remarks sitting at bedside w/o oxygen eating breakfast NAD CTA no wheezing rrr not tachycardic Globose +BS NO c/c/el no tenderness below left knee, varicosities both lower extremities A/P Problem List: (1) DVT (deep venous thrombosis) ICD Codes: I82.409 - Acute embolism and thrombosis of unspecified deep veins of unspecified lower extremity Status: Acute Plan: continue anticoagulation as above discussed that should wait to return to work after seen by her primary next week , (she states she has an trudy on sun) she should try to wear some support stockings for the swelling she may have she states she normally has some swelling , recommended she get some compression stockings while standing for prolonged periods (2) Pulmonary embolism ICD Codes: I26.99 - Other pulmonary embolism without acute cor pulmonale Status: Acute Plan: continue on anticoagulation she is unable to afford the cost of the newer oral agents and has been very anxious about being on lovenox while we bridge her still very anxious about injections, was able to get samples of xarelto 15mg to take twice daily for 21 days . Case management was able to get her a month at no cost with a coupon through the pharmaceutical so she can then start the xarelto 20 mg po daily.. She states she should be financially back on her feet and able to continue with the cost after that. Will discharge home today with samples to cover the first 21 days and a prescription and coupon for the second month. (3) Vaginal bleeding, abnormal ICD Codes: N93.9 - Abnormal uterine and vaginal bleeding, unspecified Status: Chronic Plan: she has had vaginal bleeding /spotting ongoing for several years according to her her vaginal ultrasound was abnormal, she was seen by STITCH BONDING MACHINE TENDER HELPER and at this point this issue is not emergent and can wait until she sees the a hvac mechanical engineer as an outpatient. The importance of follow up was stressed to her and she is aware of this and tells me she plans to follow up with the HARDBOARD PRESS OPERATOR her daughter used. Dr Zuleta. (4) UTI (urinary tract infection) ICD Codes: N39.0 - Urinary tract infection, site not specified Status: Acute Plan: culture growing gram neg rods, will started her on bactrim DS bid, (5) Lice ICD Codes: B85.2 - Pediculosis, unspecified Status: Acute Plan: She did come in with lice. Received treatment while here. Will discharge with prescription should they recurr. Instructed in care by nursing while here. Problem Qualifiers (1) DVT (deep venous thrombosis): Qualified Codes: I82.401 - Acute embolism and thrombosis of unspecified deep veins of right lower extremity (2) Pulmonary embolism: Qualified Codes: I26.99 - Other pulmonary embolism without acute cor pulmonale Alicia Wilcox MD Jul 07, 2017 09:56
[2017-07-08 03:50] LABS: THROMBIN TIME FOR LA GREATER THAN 100 sec (13-19)
[2017-07-11] MEDS ORDERED: PERMETHRIN 1% LOTION 60 ML BTL TOPICAL PRN (02:30)
== END 2017-07-07 11:59 | disposition home or self-care (01) | DRG 299 ==
LOC: PHED 18:14 → PHEDA 20:49 → PHICU 23:24
PROVIDERS: ADMIT Legal Medicine; ATTEND Legal Medicine
DX: I82.411 Acute embolism and thrombosis of right femoral vein (principal); I26.99 Other pulmonary embolism without acute cor pulmonale; Z68.42 Body mass index [BMI] 45.0-49.9, adult; N39.0 Urinary tract infection, site not specified; F17.210 Nicotine dependence, cigarettes, uncomplicated; B85.2 Pediculosis, unspecified; I82.441 Acute embolism and thrombosis of right tibial vein; F41.9 Anxiety disorder, unspecified; E66.9 Obesity, unspecified; N95.0 Postmenopausal bleeding
CPT/HCPCS: 71010; 71275; 76830; 76856; 80053; 81001; 81240; 81241; 81291; 82550; 83090; 83735; 83880; 84484; 85025; 85240; 85300; 85303; 85306; 85307; 85597; 85598; 85610; 85613; 85670; 85730; 86146; 86147; 86148; 87077; 87086; 87186; 90471; 90686; 90732; 93005; 93308; 93971; 94620; G0008; G0009; J1644; J1650; Q2038; Q9967